=== PATIENT | male | born 1995 | race African-American/Black ===

== ENCOUNTER 2017-09-12 21:50 | Emergency (ER) | payer OTHER ==
[~2017-09-12] VITALS: Ht 170.2 cm; Wt 78.6 kg
[2017-09-12] MEDS ORDERED: FLEXERIL10 MG PO (23:21)
[2017-09-12] MEDS ORDERED: NAPROSYN500 MG PO (23:21)
[2017-09-12 23:41] VITALS: BP 133/86
== END 2017-09-12 23:41 | disposition home or self-care (01) ==
LOC: EME 21:50
DX: S16.1XXA Strain of muscle, fascia and tendon at neck level, initial encounter (principal); V49.40XA Driver injured in collision with unspecified motor vehicles in traffic accident, initial encounter; Z72.0 Tobacco use
CPT/HCPCS: 72040; 99281; 99284